=== PATIENT | male | born 1995 | race Caucasian/White ===

== ENCOUNTER 2023-07-27 09:00 | Day surgery (SDC) | payer OTHER, SELFPAY ==
--- NOTE | 2023-07-27 | PATH_ITS ---
[facility] Accession Number: [id number] No. of containers..02 Tissue . 01 Material submitted: . PART A: gastrointestinal site - GASTRIC BX PART B: duodenum - DUODENAL BIOPSIES . 01 Clinical history: . A) R/O H. PYLORI . 01 Diagnosis: A. STOMACH, BIOSPY: Gastric antral and body mucosa with no diagnostic abnormality. No evidence of Helicobacter organisms on H/E stain. Negative for intestinal metaplasia. Negative for dysplasia or malignancy. . B. DUODENUM, BIOPSY: Duodenal mucosa with focal foveolar metaplasia, consistent with peptic duodenitis. Negative for active inflammation, features of sprue, dysplasia, or malignancy. [facility] 08/02/2023 1139 Local . 01 Electronically signed: . Tj Hull MD, PhD, Pathologist NPI- [id number] . 01 Gross description: . Part A: GASTRIC BX: Received in formalin are 2 fragment(s) of samayoa, soft tissue measuring 0.2 x 0.2 x 0.2 cm to 0.5 x 0.3 x 0.2 cm submitted entirely in 1 cassette(s) Part B: DUODENAL BIOPSIES: Received in formalin are 2 fragment(s) of samayoa, soft tissue measuring 0.2 x 0.2 x 0.2 cm to 0.3 x 0.2 x 0.2 cm submitted entirely in 1 cassette(s) /SINDHU 07/28/20235 Local . 01 Pathologist provided ICD-10: R11.2, R10.13, K29.80 . 01 CPT . 234577, 406069 Specimen Comment: A courtesy copy of this report has been sent to [phone] Performed at: 01 [facility] [address] [place] [id number] MD Yves Eason MD Phone: [phone]
--- NOTE | 2023-07-27 10:10 | PM.HP.1 ---
History of Present Illness History of Present Illness Date Patient Seen: 07/27/23 Chief complaint: SDC Narrative: Abdominal pain nausea vomiting and diarrhea Exam Narrative Exam Narrative: Oropharynx free of lesions Chest clear to auscultation percussion Cardiac exam reveals no S3 or murmur Assessment & Plan Assessment & Plan narrative: Abdominal pain nausea vomiting and diarrhea. Need for EGD with biopsies. Risks, benefits, alternatives have been explained.
--- NOTE | 2023-07-27 10:12 | PM.OP.EGD ---
Operative Date/Time/Diagnoses Date of procedure: 07/27/23 Pre-op diagnosis: See indication and findings Procedure & Clinicians Study performed: EGD Indications: Nausea vomiting diarrhea and abdominal pain Surgeon: Riley Brennan Procedure Notes Procedure in detail: After informed consent was obtained the patient was placed in left lateral decubitus position. The video upper scope was placed into the oropharynx and with the patient's help swelled into the esophagus. The esophagus stomach and duodenum were carefully examined. On withdrawal, retroflexed view the GE junction was performed. The scope was removed. The patient tolerated procedure well. Blood loss none Complications none Sedation mac Findings 1. Normal esophagus with of very normal and regular squamocolumnar junction 2. Fairly wide open lower esophageal sphincter 3. Patchy gastric erythema particularly in the antrum biopsies taken to rule out Helicobacter 4. Normal duodenal bulb and sweep biopsies taken to rule out celiac Will be in touch regarding biopsies. He should follow-up through the main office with his GI provider JACKLYN Edwards
[2023-07-27] MEDS: LACTATED RINGERS 1,000 ML 100 ML IV (10:29)
[2023-07-27 10:31] VITALS: BP 149/92; PULSE 97; RESP 20; TEMP 36.6; O2SAT 97
[2023-07-27 11:57] VITALS: BP 140/81; PULSE 83; RESP 15; TEMP 36.6; O2SAT 98
[2023-07-27 12:02] VITALS: BP 135/78; PULSE 83; RESP 13; O2SAT 97
[2023-07-27 12:07] VITALS: BP 142/90; PULSE 82; RESP 23; O2SAT 98
[2023-07-27 12:12] VITALS: BP 127/75; PULSE 76; RESP 20; TEMP 37; O2SAT 97
== END 2023-07-27 12:20 | disposition home or self-care (01) ==
PROVIDERS: Referring Provider Internal Medicine Gastroenterology; Visit Provider Internal Medicine Gastroenterology
PROC: 0DJ08ZZ Inspection of Upper Intestinal Tract, Via Natural or Artificial Opening Endoscopic (ICD-10-PCS; CPT 43235; principal; 2023-07-27 10:30)
DX: R11.2 Nausea with vomiting, unspecified (principal); R10.9 Unspecified abdominal pain
CPT/HCPCS: 43239; J2704

== ENCOUNTER 2023-11-30 08:01 | Day surgery (SDC) | payer OTHER, SELFPAY ==
--- NOTE | 2023-11-30 | PATH_ITS ---
[facility] Accession Number: [id number] No. of containers..01 Tissue . 01 Material submitted: . colon - RANDOM COLON BIOPSIES . 01 Diagnosis: RANDOM COLON, BIOPSY: Colonic mucosa with no diagnostic abnormality. Negative for active, chronic, and microscopic colitis. Negative for dysplasia and malignancy. [facility] 12/02/2023 1059 Local . 01 Electronically signed: . Tj Hull MD, PhD, Pathologist NPI- [id number] . 01 Gross description: . Received in formalin with two patient identifiers and random colon biopsies, are multiple samayoa soft tissue fragments aggregating to 1.1 x 0.6 x 0.2 cm. Filtered and submitted in A1. ([id number]) /MRV 12/01/2023 1722 Local . 01 Pathologist provided ICD-10: R19.7 . 01 CPT . 663179 Specimen Comment: A courtesy copy of this report has been sent to [phone] Performed at: [address] [facility] [address], [place], [place] [id number] MD Yves Eason MD Phone: [phone]
--- NOTE | 2023-11-30 08:34 | PM.HP.1 ---
History of Present Illness History of Present Illness Date Patient Seen: 11/30/23 Chief complaint: SDC Narrative: Diarrhea PFSH Social History Smoking Status: Current some day smoker alcohol intake: current Meds Home Medications and Allergies Home Medications Medication Instructions Recorded Confirmed Type losartan 50 mg tablet 50 mg PO ONCE PM 07/27/23 11/30/23 History cholecalciferol (vitamin D3) 25 25 mcg PO DAILY 11/30/23 11/30/23 History mcg (1,000 unit) chewable tablet (Vitamin D3) Allergies Allergy/AdvReac Type Severity Reaction Status Date / Time No Known Drug Allergies Allergy Verified 11/30/23 08:22 Exam Narrative Exam Narrative: Oropharynx free of lesions Chest clear to auscultation percussion Cardiac exam reveals no S3 or murmur Assessment & Plan Assessment & Plan narrative: Diarrhea. Need to assess for inflammatory bowel disease. Risks, benefits, alternatives have been explained. Time-Based Coding :: [TOTAL MINUTES] spent with patient and on the chart (including review of chart, obtaining history, exam, reviewing outside data, placing orders, documenting exam and treatment plan, and counseling patient) on [DATE].
--- NOTE | 2023-11-30 08:35 | P.OP.COLON_ITS ---
Operative Date/Time/Diagnoses Date of procedure: 11/30/23 Pre-op diagnosis: See indication and findings Procedure & Clinicians Study performed: Colonoscopy Indications: Diarrhea Surgeon: Riley Brennan Procedure Notes Procedure in detail: After informed consent was obtained the patient was placed in left lateral de cubitus position. The video colonoscope was introduced the rectum slowly advanced cecum and then a brief glimpse into the terminal ileum.. Preparation was good. On slow withdrawal mucosa was carefully examined. The scope was removed. The patient tolerated procedure well. Blood loss none Complications none Sedation mac Findings 1. Normal terminal ileum 2. Normal colonoscopy to cecum. Random biopsies taken. Will be in touch regarding biopsies.
[2023-11-30 08:40] VITALS: BP 159/104; PULSE 104; RESP 20; TEMP 37.3; O2SAT 97
[2023-11-30] MEDS: LACTATED RINGERS 1,000 ML 42 ML IV (08:40)
[2023-11-30 09:35] VITALS: BP 124/78; PULSE 98; RESP 22; TEMP 36.3; O2SAT 93
[2023-11-30 09:40] VITALS: BP 127/81; PULSE 88; RESP 19; O2SAT 95
[2023-11-30 09:45] VITALS: BP 121/69; PULSE 82; RESP 22; O2SAT 93
[2023-11-30 09:55] VITALS: BP 119/78; PULSE 90; RESP 20; TEMP 36.3; O2SAT 95
== END 2023-11-30 10:05 | disposition home or self-care (01) ==
PROVIDERS: PCP Physician Assistant; Referring Provider Internal Medicine Gastroenterology; Visit Provider Internal Medicine Gastroenterology
PROC: 0DJD8ZZ Inspection of Lower Intestinal Tract, Via Natural or Artificial Opening Endoscopic (ICD-10-PCS; CPT 45378; principal; 2023-11-30 09:00)
DX: R19.7 Diarrhea, unspecified (principal)
CPT/HCPCS: 45380; J2704